=== PATIENT | female | born 2000 | race Caucasian/White ===

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

== ENCOUNTER 2023-09-21 11:35 | Emergency (ER) | payer SELFPAY ==
[2023-09-21 11:47] VITALS: BP 134/90; PULSE 92; RESP 17; TEMP 98.6; BMI 24.5
[2023-09-21] MEDS ORDERED: IBUPROFEN 400 MG TABLET (FP) PO ONE ×2 (15:40)
== END 2023-09-21 18:17 | disposition home or self-care (01) ==
LOC: JERFT 11:35
PROC: 2W3CX1Z Immobilization of Right Lower Arm using Splint (ICD-10-PCS; principal; 2023-09-21)
DX: S62.339A Displaced fracture of neck of unspecified metacarpal bone, initial encounter for closed fracture (principal); M79.641 Pain in right hand; M79.89 Other specified soft tissue disorders; W22.09XA Striking against other stationary object, initial encounter; Y93.71 Activity, boxing; Y92.009 Unspecified place in unspecified non-institutional (private) residence as the place of occurrence of the external cause
CPT/HCPCS: 73110-TC-RT-FY; 73130-TC-RT-FY; 99283-25